=== PATIENT | female | born 1965 | race Asian ===

== ENCOUNTER 2022-02-09 15:14 | Outpatient (CLI) | payer BC | END 2022-02-09 15:15 | disposition home or self-care (01) | LOC: BICMAMMO 15:14 | PROVIDERS: ATTEND Family Medicine | DX: Z12.31 Encounter for screening mammogram for malignant neoplasm of breast (principal); Z80.3 Family history of malignant neoplasm of breast | CPT/HCPCS: 77063; 77067 ==

== ENCOUNTER 2022-12-22 08:22 | Outpatient (CLI) | payer BC | END 2022-12-22 08:23 | disposition home or self-care (01) | LOC: BICMAMMO 08:22 | PROVIDERS: ATTEND Family Medicine | DX: N64.52 Nipple discharge (principal) | CPT/HCPCS: 76642; 77066; G0279 ==

== ENCOUNTER 2024-03-16 10:25 | Outpatient (CLI) | payer BC | END 2024-03-16 10:26 | disposition home or self-care (01) | LOC: BICRAD 10:25 | PROVIDERS: ATTEND Family Medicine | DX: M54.50 Low back pain, unspecified (principal); R63.4 Abnormal weight loss; M47.816 Spondylosis without myelopathy or radiculopathy, lumbar region; M41.9 Scoliosis, unspecified | CPT/HCPCS: 71046; 72100 ==